=== PATIENT | male | born 1945 | race Caucasian/White ===

== ENCOUNTER → 2025-06-12 08:34 | Outpatient (CLI) | payer OTHER, SELFPAY ==
--- NOTE | 2025-06-12 08:39 | DI.ECHO.S_ITS ---
[facility] : : [address] : : [place] : : [id number] : : Phone: [phone] Echocardiogram Report + + :Name: MARITZA DELGADO Study Date: 06/12/2025 Height: 70 in : :Hospital ReadingLocation: Weight: 155 lb : : Gender: Male BSA: 1.9 m2 : :: 1945 Age: 79 yrs BP: 130/61 mmHg: :Reason For Study: [id number] : :Ordering Physician: SOM, : :MATTIE Performed By: Sofy Larsen : :Referring: MARIA ALEJANDRA MUSE : + + Interpretation Summary Normal LV size. Normal LV systolic function. LVEF is 65 to 70%. RV is dilated with mild to moderately reduced RV systolic function. Severe biatrial enlargement. 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 Transaortic velocity is 1.9 m/s and within normal range. Tricuspid annulus appears dilated. There is mild to moderate tricuspid regurgitation. There is moderate pulmonary hypertension. Other findings as below. Procedure: A two-dimensional transthoracic echocardiogram with color flow and Doppler was performed. The study quality was technically adequate. There is no prior echocardiogram noted for this patient. The patient was in atrial fibrillation with heart rates between 51-67 bpm during the exam. Left Ventricle: The left ventricle is normal in size and wall thickness. The ejection fraction is estimated to be 65-70%. Diastolic function could not be accurately assessed due to atrial fibrillation. Right Ventricle: The right ventricle is moderately dilated. Right ventricular systolic function is mild to moderately reduced. Atria: The left atrium is severely dilated. The right atrium is severely dilated. There is no Doppler evidence for an interatrial shunt. Mitral Valve: There is a mechanical mitral valve. There is mild mitral regurgitation. Aortic Valve: There is a mechanical aortic valve. There is trace intravalvular regurgitation through the prosthetic aortic valve. The peak aortic velocity is 1.88 m/sec. The aortic valve mean gradient is 6.2 mmHg. Tricuspid Valve: The tricuspid annulus is dilated. There is mild to moderate tricuspid regurgitation. The right ventricular systolic pressure is estimated to be at least 39 mmHg based on an estimated right atrial pressure of 3 mm Hg. Pulmonic Valve: The pulmonic valve leaflets are thin and pliable; valve motion is normal. There is trace pulmonic regurgitation. Great Vessels: The aortic root is normal size. The dimensions of the ascending aorta are normal. The IVC is of normal diameter and collapses greater than 50% with a sniff. This suggests a low right atrial pressure of 3 mm Hg. Pericardium/ Pleura There is no pericardial effusion. There is no pleural effusion. MMode/2D Measurements & Calculations LVIDd: 4.5 cm LVOT diam: 2.0 cm LVIDs: 2.8 cm asc Aorta Diam: 3.2 cm FS: 36.8 % Ao Arch Diam (Prox Trans): 2.8 cm IVSd: 0.91 cm LVPWd: 0.94 cm LV yan. diameter/BSA (cm/m^2): 2.4 LV sys. diameter/BSA (cm/m^2): 1.5 LA A2 area: 34.1 cm2 RA long axis: 7.4 cm LA A4 area: 32.5 cm2 RA area: 28.9 cm2 LA length (vol): 7.0 cm RA vol: 95.8 ml LA vol: 135.0 ml RA : 51.1 ml/m2 LA vol index: 72.1 ml/m2 IVC diam: 1.9 cm RVD1 (basal): 4.6 cm RVD2 (mid): 3.7 cm TAPSE: 1.3 cm Doppler Measurements & Calculations Ao V2 max: 188.9 cm/sec LVOT Max Yash: 87.7 cm/sec Ao V2 mean: 115.6 cm/sec LV V1 max P.1 mmHg Ao max P.3 mmHg LV V1 VTI: 19.2 cm Ao mean P.2 mmHg IZABELLA(I,D): 1.7 cm2 Ao V2 VTI: 35.6 cm IZABELLA(V,D): 1.5 cm2 sev ratio: 0.54 IZABELLA indexed to BSA (cm^2/m^2): 0.93 MV E max yash: 173.2 cm/sec TR max yash: 298.0 cm/sec Med Peak E' Yash: 4.4 cm/sec TR max P.5 mmHg E/E' med: 39.4 PA V2 max: 110.3 cm/sec Lat Peak E' Yash: 6.1 cm/sec PA V2 mean: 61.9 cm/sec E/E' lat: 28.5 PA mean P.9 mmHg E/e' average: 33.9 PA pr(Accel): 37.0 mmHg MV dec time: 0.35 sec MVA(VTI): 1.2 cm2 MV V2 mean: 98.9 cm/sec SV(LVOT): 62.2 ml MV mean P.3 mmHg MV V2 VTI: 52.6 cm Reading Physician:11:30 AM
[2025-06-12 12:14] LABS: Alanine Aminotransferase 24 IU/L (<50); Albumin 4.5 g/dL (3.5-5.0); Albumin Globulin Ratio 1.9 (1.0-2.8); Alkaline Phosphatase 70 U/L (38-126); Blood Urea Nitrogen 17 mg/dL (9-20); Calcium 9.5 mg/dL (8.4-10.2); Carbon Dioxide 27 mmol/L (22-32); Chloride 102 mmol/L (98-107); Estimated Glomerular Filt Rate > 60 mL/min (>60); Globulin 2.4 g/dL (1.7-4.1); Glucose 95 mg/dL (70-99); HEMOLYSIS < 15 (0-50); Potassium 4.4 mmol/L (3.4-5.1); Sodium 137 mmol/L (137-145); Total Protein 6.9 g/dL (6.3-8.2)
[2025-06-12 13:51] LABS: Appearance Urine UA CLEAR; Bilirubin Urine UA NEGATIVE (NEGATIVE); Color Urine UA YELLOW; Glucose Urine UA 3+ g/dL (Negative); Ketones Urine UA NEGATIVE (NEGATIVE); Leukocyte Esterase Urine UA NEGATIVE (NEGATIVE); Nitrite Urine UA NEGATIVE (Negative); Occult Blood Urine UA NEGATIVE (Negative); Protein Urine UA NEGATIVE (Negative); Specific Gravity Urine UA <=1.005 (1.000-1.035); Urobilinogen Urine UA 1.0 E.U./dL (0.2); pH Urine UA 5.5 (4.5-8.0)
[2025-06-12 13:57] LABS: Culture Indicated Urine Cult Not Indicated
== END ==
PROVIDERS: PCP Family Medicine; Referring Provider Chiropractor; Visit Provider Chiropractor
DX: I08.1 Rheumatic disorders of both mitral and tricuspid valves (principal); I25.9 Chronic ischemic heart disease, unspecified; E11.9 Type 2 diabetes mellitus without complications; I27.20 Pulmonary hypertension, unspecified; Z95.2 Presence of prosthetic heart valve
CPT/HCPCS: 36415; 80053; 81001; 93306